=== PATIENT | female | born 1995 | race African-American/Black ===

== ENCOUNTER 2018-08-22 08:26 | Emergency (ER) | payer SELFPAY ==
[2018-08-22] MEDS ORDERED: FAMOTIDINE 20 MG/2 ML VIAL IV ONE (09:12)
[2018-08-22] MEDS ORDERED: NA CHLORIDE 0.9% 1,000 ML ONE (09:12)
[2018-08-22] MEDS ORDERED: KETOROLAC 30 MG/ML INJ ONE (09:12)
[2018-08-22] MEDS ORDERED: ONDANSETRON 4 MG/2 ML VIAL ONE (09:12)
[2018-08-22 09:19] LABS: Absolute Lymphocytes (CBC) 1.6 K/uL (0.7-4.9); Basophils % 0.6 % (0-1.3); Hematocrit 31.3 % (36.0-45.0); Monocytes % 6.2 % (3.3-12.3); RBC Red Blood Cell Count 5.14 M/uL (3.86-4.86)
[2018-08-22 09:32] LABS: ALT/SGPT 17 U/L (12-78); AST/SGOT 14 U/L (15-37); Albumin 3.9 g/dL (3.4-5.0); Alkaline Phosphatase 68 U/L (45-117); BUN Blood Urea Nitrogen 10 mg/dL (7-18); Bicarbonate 27 mmol/L (21-32); Bilirubin Direct < 0.1 mg/dL (0-0.2); Bilirubin Total 0.2 mg/dL (0.2-1.0); Glucose Level 85 mg/dL (74-106); Lipase 111 U/L (73-393); Potassium 3.8 mmol/L (3.5-5.1); Protein, Total 8.7 g/dL (6.4-8.2); Sodium Level 141 mmol/L (136-145)
[2018-08-22 10:03] LABS: Urine Blood NEGATIVE (NEG); Urine Glucose NEGATIVE (NEG); Urine Protein 1+ (NEG); Urine pH 8.5 (5.0-7.0)
[2018-08-22 10:06] LABS: Urine Amorphous Sediment 3+ /HPF (NONE SEEN); Urine Bacteria >50 /HPF (<20); Urine Culture Reflex Order REFLEXED; Urine Mucus 2+ /HPF (NONE SEEN); Urine RBC <5 /HPF (NONE SEEN)
--- NOTE | 2018-08-22 11:06 | RAD REPORT ---
EXAM DESCRIPTION: US - Abdomen Exam Limited - 08/22/2018 10:39 am CLINICAL HISTORY: Abdominal pain. COMPARISON: None. FINDINGS: The gallbladder wall is not thickened. A gallstone is not seen. Gallbladder fold is noted The biliary tree is normal caliber. IMPRESSION: Unremarkable gallbladder ultrasound.
--- NOTE | 2018-08-22 11:09 | ER ---
Nurse's Notes [facility] Name: Kimi Lara Age: 22 yrs Sex: Female : 1995 Arrival Date: 08/22/2018 Time: 08:27 Bed 19 Private MD: Diagnosis: Upper abdominal pain, unspecified Presentation: 08/22 08:51 Presenting complaint: Patient states: "I think I had bad alcohol last night. I have ss pain between my breasts and also up here (pointing to upper abdomen)." Also reports vomiting x 3. Transition of care: patient was not received from another setting of care. Onset of symptoms was August 22, 2018. Risk Assessment: Do you want to hurt yourself or someone else? Patient reports no desire to harm self or others. Initial Sepsis Screen: Does the patient meet any 2 criteria? No. Patient's initial sepsis screen is negative. Does the patient have a suspected source of infection? No. Patient's initial sepsis screen is negative. Care prior to arrival: None. 08:51 Method Of Arrival: Ambulatory ss 08:51 Acuity: MARSHA 3 ss Historical: - Allergies: 08:53 No Known Allergies; ss - Home Meds: 08:53 None [Active]; ss - PMHx: 08:53 None; ss - PSHx: 08:53 None; ss - Immunization history:: Adult Immunizations up to date. - Social history:: Smoking status: Patient/guardian denies using tobacco. - Ebola Screening: : Patient denies exposure to infectious person Patient denies travel to an Ebola-affected area in the 21 days before illness onset. Screenin:54 Abuse screen: Denies threats or abuse. Denies injuries from another. Nutritional ss screening: No deficits noted. Tuberculosis screening: Never had TB. Fall Risk None identified. Assessment: 08:54 General: Appears in no apparent distress. comfortable, Behavior is calm, cooperative, ss Denies fever, fatigue, chills. Pain: Complains of pain in chest, upper abd Pain currently is 7 out of 10 on a pain scale. Quality of pain is described as burning, sharp, Pain began "this morning" Is continuous. Neuro: Level of Consciousness is awake, alert, obeys commands, Oriented to person, place, time, situation. Cardiovascular: Capillary refill < 3 seconds is brisk in bilateral fingers. Respiratory: Airway is patent Respiratory effort is even, unlabored, Respiratory pattern is regular, symmetrical. GI: Abdomen is non-distended, obese, Bowel sounds present X 4 quads. Abd is soft X 4 quads Abdomen is tender to palpation in right upper quadrant Reports upper abdominal pain, epigastric pain, nausea, vomiting. : No signs and/or symptoms were reported regarding the genitourinary system. EENT: Nares are clear Oral mucosa is moist. Throat is clear. Derm: Skin is intact, is healthy with good turgor, Skin is dry, Skin is pink, warm \\T\\ dry. normal. Musculoskeletal: Circulation, motion, and sensation intact. Range of motion: intact in all extremities, Swelling absent. 09:45 Reassessment: Patient appears in no apparent distress at this time. Patient and/or em family updated on plan of care and expected duration. Pain level reassessed. Patient is alert, oriented x 3, equal unlabored respirations, skin warm/dry/pink. rates pain 4/10 Patient states feeling better. 11:00 Reassessment: Patient appears in no apparent distress at this time. Patient and/or em family updated on plan of care and expected duration. Pain level reassessed. Patient is alert, oriented x 3, equal unlabored respirations, skin warm/dry/pink. Patient states feeling better. Patient states symptoms have improved. Vital Signs: 08:53 BP 121 / 73; Pulse 65; Resp 15; Temp 97.5(TE); Pulse Ox 98% on R/A; Weight 86.18 kg; Height 5 ft. 0 in. (152.40 cm); Pain 7/10; 09:45 BP 129 / 63; Pulse 85; Resp 16 S; Pulse Ox 99% ; Pain 4/10; em 11:00 BP 117 / 68; Pulse 61; Resp 16; Pulse Ox 100% on R/A; Pain 2/10; em 08:53 Body Mass Index 37.11 (86.18 kg, 152.40 cm) ED Course: 08:27 Patient arrived in ED. as 08:33 [facility] kb 08:33 Juanjo Maloney MD is Attending Physician. kb 08:53 Triage completed. ss 08:53 Vinny Tobar LVN is Primary Nurse. em 08:53 Arm band placed on right wrist. ss 08:54 Patient has correct armband on for positive identification. Bed in low position. Call light in reach. 09:05 Initial lab(s) drawn, by me, sent to lab. Urine collected: clean catch specimen, clear. ms Inserted saline lock: 22 gauge in right antecubital area, using aseptic technique. Blood collected. 10:40 Ultrasound completed. Patient tolerated well. sg3 10:42 US Abdomen Limited In Process Unspecified. EDMS 11:22 No provider procedures requiring assistance completed. IV discontinued, intact, em bleeding controlled, No redness/swelling at site. Pressure dressing applied. Administered Medications: 09:07 Drug: NS 0.9% 1000 ml Route: IV; Rate: 1000 ml; Site: right antecubital; ss 10:48 Follow up: IV Status: Completed infusion; IV Intake: 1000ml em 09:07 Drug: Zofran 4 mg Route: IVP; Site: right antecubital; ss 09:45 Follow up: Response: No adverse reaction; Nausea is decreased em 09:09 Drug: Pepcid 20 mg Route: IVP; Site: right antecubital; ss 09:45 Follow up: Response: No adverse reaction; Pain is decreased em 09:12 Drug: TORadol - Ketorolac 15 mg Route: IVP; Site: right antecubital; ss 09:45 Follow up: Response: No adverse reaction; Pain is decreased em Intake: 10:48 IV: 1000ml; Total: 1000ml. em Outcome: 11:08 Discharge ordered by . kb 11:22 Discharged to home ambulatory. em 11:22 Condition: good 11:22 Discharge instructions given to patient, family, Instructed on discharge instructions, follow up and referral plans. medication usage, Demonstrated understanding of instructions, follow-up care, medications, Prescriptions given X 2. 11:23 Patient left the ED. em Signatures: Dispatcher [employer] Angelia Quiroga, BONING ROOM WORKER-C BONING ROOM WORKER-Vinny Luna, JAMB CUTTER JAMB CUTTER Ludivina Carrillo Maria ms Smirch, Shelby, JAYLIN RN Bessy Sahu sg3
--- NOTE | 2018-08-22 11:09 | EDPHYS ---
Physician Documentation [facility] Name: Kimi Lara Age: 22 yrs Sex: Female : 1995 Arrival Date: 08/22/2018 Time: 08:27 Bed 19 Private MD: ED Physician Juanjo Maloney HPI: 08/22 09:28 This 22 yrs old Black Female presents to ER via Ambulatory with complaints of kb Epigastric Pain. 09:28 The patient presents with abdominal pain in the epigastric area, in the upper abdomen. kb Onset: The symptoms/episode began/occurred this morning. The symptoms do not radiate. Associated signs and symptoms: Pertinent positives: nausea and vomiting, chest pain, Pertinent negatives: anorexia, blood in stools, constipation, diarrhea, dysuria, fever, headache, hematuria, palpitations, shortness of breath, vaginal discharge, vomiting blood. The symptoms are described as constant. Modifying factors: The symptoms are alleviated by nothing, the symptoms are aggravated by nothing. Severity of pain: At its worst the pain was moderate in the emergency department the pain is unchanged. The patient has experienced similar episodes in the past. The patient has not recently seen a physician. Pt reports she woke up at 0630 with upper abd pain and pain to center of chest. STates she vomited twice. "I think the alcohol I drank last night was bad because I've never had this kind of reaction." . Historical: - Allergies: 08:53 No Known Allergies; ss - Home Meds: 08:53 None [Active]; ss - PMHx: 08:53 None; ss - PSHx: 08:53 None; ss - Immunization history:: Adult Immunizations up to date. - Social history:: Smoking status: Patient/guardian denies using tobacco. - Ebola Screening: : Patient denies exposure to infectious person Patient denies travel to an Ebola-affected area in the 21 days before illness onset. ROS: 09:12 Constitutional: Negative for fever, chills, and weight loss, Neck: Negative for injury, kb pain, and swelling, Respiratory: Negative for shortness of breath, cough, wheezing, and pleuritic chest pain, Back: Negative for injury and pain, : Negative for injury, bleeding, discharge, and swelling, MS/Extremity: Negative for injury and deformity, Skin: Negative for injury, rash, and discoloration, Neuro: Negative for headache, weakness, numbness, tingling, and seizure. 09:12 Cardiovascular: Positive for chest pain, Negative for edema, orthopnea, palpitations, paroxysmal nocturnal dyspnea. 09:12 Abdomen/GI: Positive for abdominal pain, nausea and vomiting, Negative for diarrhea, constipation, abdominal cramps, abdominal distension, anorexia. Exam: 09:27 Constitutional: This is a well developed, well nourished patient who is awake, alert, kb and in no acute distress. Head/Face: Normocephalic, atraumatic. ENT: Nares patent. No nasal discharge, no septal abnormalities noted. Tympanic membranes are normal and external auditory canals are clear. Oropharynx with no redness, swelling, or masses, exudates, or evidence of obstruction, uvula midline. Mucous membranes moist. Neck: Trachea midline, no thyromegaly or masses palpated, and no cervical lymphadenopathy. Supple, full range of motion without nuchal rigidity, or vertebral point tenderness. No Meningismus. Chest/axilla: Normal chest wall appearance and motion. Nontender with no deformity. No lesions are appreciated. Cardiovascular: Regular rate and rhythm with a normal S1 and S2. No gallops, murmurs, or rubs. Normal PMI, no JVD. No pulse deficits. Respiratory: Lungs have equal breath sounds bilaterally, clear to auscultation and percussion. No rales, rhonchi or wheezes noted. No increased work of breathing, no retractions or nasal flaring. Back: No spinal tenderness. No costovertebral tenderness. Full range of motion. Skin: Warm, dry with normal turgor. Normal color with no rashes, no lesions, and no evidence of cellulitis. MS/ Extremity: Pulses equal, no cyanosis. Neurovascular intact. Full, normal range of motion. Neuro: Awake and alert, GCS 15, oriented to person, place, time, and situation. Cranial nerves II-XII grossly intact. Motor strength 5/5 in all extremities. Sensory grossly intact. Cerebellar exam normal. Normal gait. 09:27 Abdomen/GI: Inspection: obese Bowel sounds: normal, in all quadrants, Palpation: moderate abdominal tenderness, in the epigastric area and right upper quadrant. 11:07 ECG was reviewed by the Attending Physician. kb Vital Signs: 08:53 BP 121 / 73; Pulse 65; Resp 15; Temp 97.5(TE); Pulse Ox 98% on R/A; Weight 86.18 kg; ss Height 5 ft. 0 in. (152.40 cm); Pain 7/10; 09:45 BP 129 / 63; Pulse 85; Resp 16 S; Pulse Ox 99% ; Pain 4/10; em 11:00 BP 117 / 68; Pulse 61; Resp 16; Pulse Ox 100% on R/A; Pain 2/10; em 08:53 Body Mass Index 37.11 (86.18 kg, 152.40 cm) ss MDM: 08:46 Patient medically screened. kb 09:13 Data reviewed: vital signs, nurses notes. Data interpreted: Pulse oximetry: on room air kb is 98 %. Interpretation: normal. 11:08 Counseling: I had a detailed discussion with the patient and/or guardian regarding: the kb historical points, exam findings, and any diagnostic results supporting the discharge/admit diagnosis, lab results, radiology results, the need for outpatient follow up, a family practitioner, to return to the emergency department if symptoms worsen or persist or if there are any questions or concerns that arise at home. 11:09 ED course: No s/s of UTI. 08/22 08:53 Order name: Basic Metabolic Panel 08/22 08:53 Order name: CBC with Diff 08/22 08:53 Order name: Hepatic Function; Complete Time: 09:36 08/22 08:53 Order name: Lipase; Complete Time: 09:36 08/22 08:53 Order name: Basic Metabolic Panel; Complete Time: 09:36 [facility] 08/22 09:10 Order name: Urine Microscopic Only; Complete Time: 10:13 08/22 08:53 Order name: US Abdomen Limited; Complete Time: 11:07 kb 08/22 09:12 Order name: Urine Dipstick--Ancillary (enter results); Complete Time: 10:13 08/22 09:12 Order name: Urine --Ancillary (enter results); Complete Time: 10:13 08/22 09:44 Order name: CBC Smear Scan [facility] 08/22 10:08 Order name: Urine Culture [facility] 08/22 08:53 Order name: IV Saline Lock; Complete Time: 09:13 08/22 08:53 Order name: Labs collected and sent; Complete Time: 09:13 kb 08/22 10:46 Order name: EKG; Complete Time: 10:47 kb 08/22 10:46 Order name: EKG - Nurse/Tech; Complete Time: 11:10 kb EC:07 Rate is 87 beats/min. Rhythm is regular, Normal Sinus Rhythm. QRS Hagan is Normal. MD kb interval is normal at 138 msec. QRS interval is normal at 78 msec. QT interval is normal at 384 msec. Clinical impression: Normal ECG. Interpreted by me. Reviewed by me. Administered Medications: 09:07 Drug: NS 0.9% 1000 ml Route: IV; Rate: 1000 ml; Site: right antecubital; ss 10:48 Follow up: IV Status: Completed infusion; IV Intake: 1000ml em 09:07 Drug: Zofran 4 mg Route: IVP; Site: right antecubital; ss 09:45 Follow up: Response: No adverse reaction; Nausea is decreased em 09:09 Drug: Pepcid 20 mg Route: IVP; Site: right antecubital; ss 09:45 Follow up: Response: No adverse reaction; Pain is decreased em 09:12 Drug: TORadol - Ketorolac 15 mg Route: IVP; Site: right antecubital; ss 09:45 Follow up: Response: No adverse reaction; Pain is decreased em Disposition: 16:51 Co-signature as Attending Physician, Juanjo Maloney MD. rn Disposition: 08/22/18 11:08 Discharged to Home. Impression: Upper abdominal pain, unspecified. - Condition is Stable. - Discharge Instructions: Gastroesophageal Reflux Disease, Adult, Abdominal Pain, Adult, [id number]. - Prescriptions for Bentyl 20 mg Oral Tablet - take 1 tablet by ORAL route every 6 hours As needed; 20 tablet. Zofran 4 mg Oral Tablet - take 1 tablet by ORAL route every 6 hours As needed; 20 tablet. - Medication Reconciliation Form, Thank You Letter, Antibiotic Education, Prescription Opioid Use form. - Follow up: Emergency Department; When: As needed; Reason: Worsening of condition. Follow up: Private Physician; When: 2 - 3 days; Reason: Recheck today's complaints, Continuance of care, Re-evaluation by your physician. Signatures: Dispatcher [employer] Angelia Quiroga FNP-C BLOCK CLEANER-Vinny Luna, RELISH MAKER RELISH MAKER em Juanjo Maloney MD MD rn Smita Aguero RN RN ss Corrections: (The following items were deleted from the chart) 11:23 11:08 08/22/2018 11:08 Discharged to Home. Impression: Upper abdominal pain, em unspecified. Condition is Stable. Forms are Medication Reconciliation Form, Thank You Letter, Antibiotic Education, Prescription Opioid Use. Follow up: Emergency Department; When: As needed; Reason: Worsening of condition. Follow up: Private Physician; When: 2 - 3 days; Reason: Recheck today's complaints, Continuance of care, Re-evaluation by your physician. kb
[2018-08-22 13:07] LABS: Platelet Estimate INCR; Urine White Blood Cell Casts OK
[2018-08-22 13:08] LABS: Anisocytosis 2+; Blood Morphology Comment NOTED (NOT SEEN); Hypochromasia 1+; Rouleau NOTED; Target Cells 1+
--- NOTE | 2018-08-23 10:02 | EKG ---
Test Date: 2018-08-22 Test Time: 11:00:26 [employer]ship: MEASUREMENT RESULTS: Intervals: Rate: 87 KS: 138 QRSD: 78 QT: 384 QTc: 462 Johnson: P: 56 KS: 138 QRS: 51 T: 48 INTERPRETIVE STATEMENTS: Normal sinus rhythm Normal ECG No previous ECG available for comparison Electronically Signed On 08-23-18 10:01:03 CDT by Ezra Hagen
== END 2018-08-22 11:23 | disposition home or self-care (01) ==
LOC: ER 08:26
DX: R10.13 Epigastric pain (principal); R11.2 Nausea with vomiting, unspecified
CPT/HCPCS: 36415; 76705; 80048; 80076; 81003; 81015; 81025; 83690; 85025; 87086; 87088; 93005; 96361; 96374; 96375; 99284; J2405; J7030

== ENCOUNTER 2018-10-29 22:34 | Emergency (ER) | payer SELFPAY ==
[2018-10-29 23:39] LABS: Basophils % 0.7 % (0-1.3); Hematocrit 23.1 % (36.0-45.0); MPV 9.2 fL (7.6-11.3); RBC Red Blood Cell Count 3.92 M/uL (3.86-4.86)
[2018-10-29 23:50] LABS: ALT/SGPT 14 U/L (12-78); AST/SGOT 9 U/L (15-37); Albumin 3.5 g/dL (3.4-5.0); Alkaline Phosphatase 67 U/L (45-117); BUN Blood Urea Nitrogen 11 mg/dL (7-18); Bicarbonate 28 mmol/L (21-32); Bilirubin Direct 0.1 mg/dL (0-0.2); Bilirubin Total 0.2 mg/dL (0.2-1.0); Glucose Level 89 mg/dL (74-106); Lipase 92 U/L (73-393); Potassium 3.3 mmol/L (3.5-5.1); Protein, Total 7.8 g/dL (6.4-8.2); Sodium Level 140 mmol/L (136-145)
[2018-10-30] MEDS ORDERED: NA CHLORIDE 0.9% 1,000 ML ONE (00:22)
[2018-10-30 01:04] LABS: Anisocytosis 1+; Blood Morphology Comment NOTED (NOT SEEN); Hypochromasia 3+; Platelet Estimate ADEQ; Polychromasia 2+; Target Cells 3+; Urine White Blood Cell Casts OK
--- NOTE | 2018-10-30 02:48 | ER ---
Nurse's Notes [facility] Name: Kimi Lara Age: 23 yrs Sex: Female : 1995 Arrival Date: 10/29/2018 Time: 22:37 Bed 18 Private MD: Diagnosis: Anemia, unspecified;Dyspnea Presentation: 10/29 22:40 Presenting complaint: Patient states: Sternal chest pain since a couple of days now and cc3 intermittent left sided abdominal pain for a week. Transition of care: patient was not received from another setting of care. Onset of symptoms was October 29, 2018. Risk Assessment: Do you want to hurt yourself or someone else? Patient reports no desire to harm self or others. Initial Sepsis Screen: Does the patient meet any 2 criteria? HR > 90 bpm. Does the patient have a suspected source of infection? No. Patient's initial sepsis screen is negative. Care prior to arrival: None. 22:40 Method Of Arrival: Ambulatory cc3 22:40 Acuity: MARSHA 3 cc3 Triage Assessment: 22:40 General: Appears in no apparent distress. uncomfortable, Behavior is calm, cooperative, cc3 appropriate for age. Pain: Complains of pain in sternal chest pain, left sided abdominal pain. EENT: No signs and/or symptoms were reported regarding the EENT system. Neuro: Level of Consciousness is awake, alert, obeys commands, Oriented to person, place, time, situation, Appropriate for age. Cardiovascular: Reports chest pain, since a couple of days Heart tones S1 S2 present Capillary refill < 3 seconds Patient's skin is warm and dry. Respiratory: Airway is patent Respiratory effort is even, unlabored, Respiratory pattern is regular, symmetrical. GI: Abdomen is round obese. : No signs and/or symptoms were reported regarding the genitourinary system. Derm: Skin is intact, is healthy with good turgor, Skin is normal, black. Musculoskeletal: Circulation, motion, and sensation intact. Range of motion: intact in all extremities. PRODUCT MANAGEMENT INTERN: 22:40 LMP 10/09/2018 cc3 Historical: - Allergies: 22:40 No Known Allergies; cc3 - PMHx: 22:40 None; cc3 - PSHx: 22:40 None; cc3 - Immunization history:: Adult Immunizations up to date. - Social history:: Smoking status: Patient/guardian denies using tobacco, never smoked. - Ebola Screening: : No symptoms or risks identified at this time. Screenin:40 Abuse screen: Denies threats or abuse. Denies injuries from another. Nutritional cc3 screening: No deficits noted. Tuberculosis screening: No symptoms or risk factors identified. Fall Risk Ambulatory Aid- None/Bed Rest/Nurse Assist (0 pts). Gait- Normal/Bed Rest/Wheelchair (0 pts) Mental Status- Oriented to own ability (0 pts). Assessment: 22:40 Pain: Complains of pain in sternal chest pain and left sided abdominal pain Pain does cc3 not radiate. Quality of pain is described as aching, Pain began a couple of days Is intermittent. 10/30 01:01 Reassessment: Patient appears in no apparent distress at this time. Patient and/or cc3 family updated on plan of care and expected duration. Pain level reassessed. Patient is alert, oriented x 3, equal unlabored respirations, skin warm/dry/pink. IRVIN Rae spoke with the patient regarding PRBC transfusion and patient refused. 01:30 Reassessment: Patient refused CT scan procedure as well and wants to go home. AMA form cc3 signed by the patient herself though risks and consequences explained. 01:40 Reassessment: Patient appears in no apparent distress at this time. Patient and/or cc3 family updated on plan of care and expected duration. Pain level reassessed. Patient is alert, oriented x 3, equal unlabored respirations, skin warm/dry/pink. IRVIN Rae discharged the patient AMA with prescription given. IV cannula removed and patient left ER vitally stable and ambulatory with her boyfriend. No valuables left in the patient's room. Patient denies pain at this time. Patient states feeling better. Patient states symptoms have improved. Vital Signs: 10/29 22:40 BP 132 / 61; Pulse 111; Resp 20 S; Temp 98.9(O); Pulse Ox 100% on R/A; Weight 86.18 kg cc3 (R); Height 5 ft. 0 in. (152.40 cm) (R); Pain 7/10; 23:47 BP 113 / 56; Pulse 87; Resp 17 S; Pulse Ox 99% on R/A; cc3 10/30 00:45 BP 120 / 66; Pulse 89; Resp 18 S; Pulse Ox 100% on R/A; cc3 01:30 BP 114 / 74; Pulse 90; Resp 17 S; Pulse Ox 100% on R/A; Pain 3/10; cc3 10/29 22:40 Body Mass Index 37.11 (86.18 kg, 152.40 cm) cc3 ED Course: 10/29 22:37 Patient arrived in ED. mr 22:40 [facility] kb 22:40 Timothy Naik MD is Attending Physician. kb 22:40 Arm band placed on right wrist. EKG completed in triage. Results shown to MD. cc3 22:40 Patient has correct armband on for positive identification. Placed in gown. Bed in low cc3 position. Call light in reach. Side rails up X 1. telemetry monitor on. Pulse ox on. NIBP on. 22:40 Patient maintains SpO2 saturation greater than 95% on room air. cc3 22:51 Deborah Phillips is Primary Nurse. cc3 22:56 Triage completed. cc3 23:20 Inserted saline lock: 22 gauge in right antecubital area, using aseptic technique. cc3 Blood collected. inserted by business office technician Dalila. 23:29 X-ray completed. Patient tolerated procedure well. [facility] 23:49 Chest Pa And Lat (2 Views) XRAY In Process Unspecified. EDMS 09 00:41 Radiology exam delayed due to test not completed at this time. eh 01:[address] via stretcher. 01:30 No provider procedures requiring assistance completed. IV discontinued, intact, cc3 bleeding controlled, No redness/swelling at site. Pressure dressing applied. Administered Medications: 00:15 Drug: NS 0.9% 1000 ml Route: IV; Rate: 1000 ml; Site: right antecubital; cc3 01:30 Follow up: Response: No adverse reaction; IV Status: Order to discontinue infusion; IV cc3 Intake: 600ml ; patient discharged AMA Intake: 01:30 IV: 600ml; Total: 600ml. cc3 Outcome: 01:40 AMA AMA form signed cc3 01:40 Condition: stable 01:40 Discharge instructions given to patient, Instructed on discharge instructions, follow up and referral plans. medication usage, Demonstrated understanding of instructions, follow-up care, medications, Prescriptions given X 1. 01:43 Patient left the ED. cc3 Signatures: Dispatcher [employer] EDMS Angelia Rae, PARISA SPENCEP-Alicia Rose Betsy, Sinan Perez, Romina 1 Deborah Phillips cc3 Corrections: (The following items were deleted from the chart) 01:49 01:30 BP 114 / 74; Pulse 90bpm; Resp 17bpm; Spontaneous; Pulse Ox 100% RA; cc3 cc3
--- NOTE | 2018-10-30 02:51 | EDPHYS ---
Physician Documentation [facility] Name: Kimi Lara Age: 23 yrs Sex: Female : 1995 Arrival Date: 10/29/2018 Time: 22:37 Bed 18 Private MD: ED Physician Timothy Naik HPI: 10/30 01:13 This 23 yrs old Black Female presents to ER via Ambulatory with complaints of Chest kb Pain, Abdominal Pain. 01:13 The patient has shortness of breath at rest. Onset: The symptoms/episode began/occurred kb 2 week(s) ago. Duration: The symptoms are continuous. The patient's shortness of breath is aggravated by exertion. Associated signs and symptoms: Pertinent positives: chest pain. Severity of symptoms: At their worst the symptoms were moderate in the emergency department the symptoms are unchanged. The patient has not experienced similar symptoms in the past. The patient has not recently seen a physician. 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 - Social history:: Smoking status: Patient/guardian denies using tobacco, never smoked. - Ebola Screening: : No symptoms or risks identified at this time. ROS: 10/30 01:13 Constitutional: Negative for fever, chills, and weight loss, ENT: Negative for injury, kb pain, and discharge, Neck: Negative for injury, pain, and swelling, Back: Negative for injury and pain, : Negative for injury, bleeding, discharge, and swelling, MS/Extremity: Negative for injury and deformity, Skin: Negative for injury, rash, and discoloration, Neuro: Negative for headache, weakness, numbness, tingling, and seizure. Cardiovascular: Positive for chest pain, Negative for edema, orthopnea, palpitations, paroxysmal nocturnal dyspnea. Respiratory: Positive for dyspnea on exertion, shortness of breath, Negative for cough, hemoptysis, orthopnea, pleurisy, sputum production, wheezing. Abdomen/GI: Positive for abdominal pain, Negative for nausea, vomiting, and diarrhea. Exam: 01:13 Constitutional: This is a well developed, well nourished patient who is awake, alert, kb and in no acute distress. Head/Face: Normocephalic, atraumatic. ENT: Nares patent. No nasal discharge, no septal abnormalities noted. Tympanic membranes are normal and external auditory canals are clear. Oropharynx with no redness, swelling, or masses, exudates, or evidence of obstruction, uvula midline. Mucous membranes moist. Neck: Trachea midline, no thyromegaly or masses palpated, and no cervical lymphadenopathy. Supple, full range of motion without nuchal rigidity, or vertebral point tenderness. No Meningismus. Chest/axilla: Normal chest wall appearance and motion. Nontender with no deformity. No lesions are appreciated. Cardiovascular: Regular rate and rhythm with a normal S1 and S2. No gallops, murmurs, or rubs. Normal PMI, no JVD. No pulse deficits. Respiratory: Lungs have equal breath sounds bilaterally, clear to auscultation and percussion. No rales, rhonchi or wheezes noted. No increased work of breathing, no retractions or nasal flaring. Abdomen/GI: Soft, non-tender, with normal bowel sounds. No distension or tympany. No guarding or rebound. No evidence of tenderness throughout. Skin: Warm, dry with normal turgor. Normal color with no rashes, no lesions, and no evidence of cellulitis. MS/ Extremity: Pulses equal, no cyanosis. Neurovascular intact. Full, normal range of motion. Neuro: Awake and alert, GCS 15, oriented to person, place, time, and situation. Cranial nerves II-XII grossly intact. Motor strength 5/5 in all extremities. Sensory grossly intact. Cerebellar exam normal. Normal gait. Vital Signs: 10/29 22:40 BP 132 / 61; Pulse 111; Resp 20 S; Temp 98.9(O); Pulse Ox 100% on R/A; Weight 86.18 kg cc3 (R); Height 5 ft. 0 in. (152.40 cm) (R); Pain 7/10; 23:47 BP 113 / 56; Pulse 87; Resp 17 S; Pulse Ox 99% on R/A; cc3 10/30 00:45 BP 120 / 66; Pulse 89; Resp 18 S; Pulse Ox 100% on R/A; cc3 01:30 BP 114 / 74; Pulse 90; Resp 17 S; Pulse Ox 100% on R/A; Pain 3/10; cc3 10/29 22:40 Body Mass Index 37.11 (86.18 kg, 152.40 cm) cc3 MDM: 10/29 22:40 Patient medically screened. 10/30 00:59 Data reviewed: vital signs, nurses notes. Data interpreted: Pulse oximetry: on room air kb is 99 %. Interpretation: normal. Counseling: I had a detailed discussion with the patient and/or guardian regarding: the historical points, exam findings, and any diagnostic results supporting the discharge/admit diagnosis, lab results, radiology results, the need for further work-up and treatment in the hospital. ED course: Pt reports she is not currently bleeding, but does have heavy periods.Discussed need for blood transfusion. Pt states she does not want to have that done. Refuses transfusion. Educated on need for iron supplements. Verbal understanding received. . 01:23 ED course: Pt refuses CT scan. Wants to go home. Educated on risks of leaving. Will kb return if needed. . 10/29 22:58 Order name: Basic Metabolic Panel; Complete Time: 23:54 kb 10/29 22:58 Order name: CBC with Diff; Complete Time: 01:09 kb 10/29 22:58 Order name: Hepatic Function; Complete Time: 23:54 kb 10/29 22:58 Order name: Lipase; Complete Time: 23:54 kb 10/29 22:58 Order name: D-Dimer; Complete Time: 00:06 kb 10/30 00:07 Order name: Type And Screen 10/29 22:58 Order name: IV Saline Lock; Complete Time: 23:47 kb 10/29 22:58 Order name: Chest Pa And Lat (2 Views) XRAY 10/29 22:58 Order name: EKG; Complete Time: 23:00 kb 10/30 00:12 Order name: CBC Smear Scan; Complete Time: 01:09 EDMS 10/30 01:21 Order name: Urine Dipstick--Ancillary (enter results) [facility] 10/30 01:21 Order name: Urine --Ancillary (enter results) [facility] 10/29 22:58 Order name: Labs collected and sent; Complete Time: 23:47 kb 10/29 22:58 Order name: EKG - Nurse/Tech; Complete Time: 23:47 kb Administered Medications: 00:15 Drug: NS 0.9% 1000 ml Route: IV; Rate: 1000 ml; Site: right antecubital; cc3 01:30 Follow up: Response: No adverse reaction; IV Status: Order to discontinue infusion; IV cc3 Intake: 600ml ; patient discharged AMA Disposition: 01:43 Co-signature as Attending Physician, Timothy Naik MD I agree with the assessment and kdr plan of care. Disposition: 10/30/18 01:25 Patient has left against medical advice. Impression: Anemia, unspecified, Dyspnea. - Patients states they are going to Home. - Condition is Stable. - Discharge Instructions: Menorrhagia, [id number], Iron Deficiency Anemia, Adult, [id number]. - Prescriptions for Ferrous Sulfate 325 mg (65 mg Iron) Oral Tablet - take 1 tablet by ORAL route every 8 hours; 90 tablet. Work release form, Family Work Release form. Follow up: Emergency Department; When: As needed; Reason: Worsening of condition. Follow up: Private Physician; When: 2 - 3 days; Reason: Recheck today's complaints, Continuance of care, Re-evaluation by your physician. - Problem is new. - Symptoms have improved. Signatures: Dispatcher [employer] EDMS Angelia Rae, COMMUNITY RECREATION PROGRAMMER-C COMMUNITY RECREATION PROGRAMMER-CkTimothy Pak MD MD [facility] Deborah Phillips cc3 Corrections: (The following items were deleted from the chart) 01:43 01:25 10/30/2018 01:25 Patients has left against medical advice. Impression: Anemia, cc3 unspecified; Dyspnea. Patient states they are going to Home. Condition is Stable. Follow up: Emergency Department; When: As needed; Reason: Worsening of condition. Follow up: Private Physician; When: 2 - 3 days; Reason: Recheck today's complaints, Continuance of care, Re-evaluation by your physician. Problem is new. Symptoms have improved. kb
[2018-10-30 03:36] LABS: Urine Blood NEGATIVE (NEG); Urine Glucose NEGATIVE (NEG); Urine Protein NEGATIVE (NEG)
--- NOTE | 2018-10-30 08:23 | EKG ---
Test Date: 2018-10-29 Test Time: 23:03:00 Tractor Trailer Technician: TYRONE MEASUREMENT RESULTS: Intervals: Rate: 99 MS: 128 QRSD: 74 QT: 362 QTc: 464 Vista: P: 66 MS: 128 QRS: 56 T: 42 INTERPRETIVE STATEMENTS: Normal sinus rhythm Normal ECG Compared to ECG 08/22/2018 11:00:26 No significant changes Electronically Signed On 10-30-18 08:22:46 CDT by Arsh Ramírez
--- NOTE | 2018-10-30 09:27 | RAD REPORT ---
EXAM DESCRIPTION: RAD - Chest Pa And Lat (2 Views) - 10/29/2018 11:48 pm CLINICAL HISTORY: Chest pain;Dyspnea COMPARISON: None. TECHNIQUE: PA and lateral views of the chest were obtained. FINDINGS: The lungs are clear. Heart size is normal and central vasculature is within normal limit s. No pleural effusion or pneumothorax seen. No acute bony finding noted. No aortic abnormality. IMPRESSION: No acute cardiopulmonary process.
== END 2018-10-30 01:43 | disposition left against medical advice (07) ==
LOC: ER 22:34
DX: R06.00 Dyspnea, unspecified (principal); D64.9 Anemia, unspecified
CPT/HCPCS: 36415; 71046; 80048; 80076; 81003; 81025; 83690; 85025; 85379; 86850; 86900; 86901; 93005; 96360; 99285; J7030

== ENCOUNTER 2018-12-15 01:47 | Emergency (ER) | payer OTHER, SELFPAY ==
--- NOTE | 2018-12-15 03:03 | ER ---
Nurse's Notes [facility] Name: Kimi Lara Age: 23 yrs Sex: Female : 1995 Arrival Date: 12/15/2018 Time: 01:51 Bed 19 Private MD: Diagnosis: Other chest pain; related conditions, unspecified, first trimester;Urinary tract infection, site not specified Presentation: 12/15 01:59 Presenting complaint: Patient states: chest pain, eye pain after using bleach today at [facility] work. Transition of care: patient was not received from another setting of care. Onset of symptoms was December 15, 2018. Risk Assessment: Do you want to hurt yourself or someone else? Patient reports no desire to harm self or others. Initial Sepsis Screen: Does the patient meet any 2 criteria? No. Patient's initial sepsis screen is negative. Does the patient have a suspected source of infection? No. Patient's initial sepsis screen is negative. Care prior to arrival: None. 01:59 Method Of Arrival: Ambulatory ak 01:59 Acuity: MARSHA 4 ak1 Triage Assessment: 01:58 General: Appears in no apparent distress. Behavior is calm, cooperative. 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 - Social history:: Smoking status: Patient/guardian denies using tobacco. - Ebola Screening: : No symptoms or risks identified at this time. - Family history:: not pertinent. Screenin:50 Abuse screen: Denies threats or abuse. Denies injuries from another. Nutritional lp1 screening: No deficits noted. Tuberculosis screening: No symptoms or risk factors identified. Fall Risk None identified. Assessment: 02:50 General: Appears in no apparent distress. Behavior is calm, cooperative, appropriate lp1 for age. Pain: Complains of pain in chest Pain does not radiate. Quality of pain is described as sharp, Pain began 1 day ago. Aggravated by respirations. Neuro: No deficits noted. Cardiovascular: Patient's skin is warm and dry. Respiratory: Respiratory effort is even, unlabored. GI: No deficits noted. : No deficits noted. EENT: No deficits noted. Derm: Skin is intact, Skin is dry, Skin is normal. Musculoskeletal: No deficits noted. Vital Signs: 01:58 BP 121 / 97; Pulse 107; Resp 16; Temp 97.5; Pulse Ox 96% on R/A; Weight 83.91 kg (R); ak1 Height 5 ft. 0 in. (152.40 cm) (R); Pain 7/10; 01:58 Body Mass Index 36.13 (83.91 kg, 152.40 cm) ak1 ED Course: 01:51 Patient arrived in ED. es 01:58 Arm band placed on Patient placed in waiting room, Patient notified of wait time. ak1 02:00 Triage completed. ak1 02:18 Brad Morales MD is Attending Physician. anamaria 02:40 Allison Farias, RN is Primary Nurse. lp1 02:51 Patient has correct armband on for positive identification. lp1 02:51 No provider procedures requiring assistance completed. lp1 03:02 Travon Dallas MD is Referral Physician. anamaria 03:15 Patient did not have IV access during this emergency room visit. lp1 Administered Medications: No medications were administered Outcome: 03:02 Discharge ordered by . anamaria 03:15 Discharged to home ambulatory. lp1 03:15 Condition: good 03:15 Discharge instructions given to patient, Instructed on discharge instructions, follow up and referral plans. medication usage, Demonstrated understanding of instructions, follow-up care, medications, Prescriptions given X 2. 03:16 Patient left the ED. lp1 Signatures: rBad Morales MD MD cha Salyer, Edna es Pena, Laura, RN RN lp1 Leatha José, RN RN ak1
--- NOTE | 2018-12-15 03:04 | EDPHYS ---
Physician Documentation [facility] Name: Kimi Lara Age: 23 yrs Sex: Female : 1995 Arrival Date: 12/15/2018 Time: 01:51 Bed 19 Private MD: ED Physician Brad Morales HPI: 12/15 02:59 This 23 yrs old Black Female presents to ER via Ambulatory with complaints of Chest anamaria Pain, 5wks preg. 02:59 The patient or guardian reports chest pain that is located primarily in the anterior anamaria chest wall. The pain does not radiate. Associated signs and symptoms: The patient has no apparent associated signs or symptoms. The chest pain is described as aching. Modifying factors: The symptoms are alleviated by nothing. the symptoms are aggravated by nothing. Severity of pain: At its worst the pain was mild in the emergency department the pain has improved mildly. 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 - Social history:: Smoking status: Patient/guardian denies using tobacco. - Ebola Screening: : No symptoms or risks identified at this time. - Family history:: not pertinent. ROS: 02:59 Constitutional: Negative for fever, chills, and weight loss, Eyes: Negative for injury, anamaria pain, redness, and discharge, ENT: Negative for injury, pain, and discharge, Neck: Negative for injury, pain, and swelling, Respiratory: Negative for shortness of breath, cough, wheezing, and pleuritic chest pain, Abdomen/GI: Negative for abdominal pain, nausea, vomiting, diarrhea, and constipation, Back: Negative for injury and pain, : Negative for injury, bleeding, discharge, and swelling, MS/Extremity: Negative for injury and deformity, Skin: Negative for injury, rash, and discoloration, Neuro: Negative for headache, weakness, numbness, tingling, and seizure, Psych: Negative for depression, anxiety, suicide ideation, homicidal ideation, and hallucinations, Allergy/Immunology: Negative for hives, rash, and allergies, Endocrine: Negative for neck swelling, polydipsia, polyuria, polyphagia, and marked weight changes, Hematologic/Lymphatic: Negative for swollen nodes, abnormal bleeding, and unusual bruising. 02:59 Cardiovascular: Positive for chest pain, of the chest. Exam: 02:59 Constitutional: This is a well developed, well nourished patient who is awake, alert, anamaria and in no acute distress. Head/Face: Normocephalic, atraumatic. Eyes: Pupils equal round and reactive to light, extra-ocular motions intact. Lids and lashes normal. Conjunctiva and sclera are non-icteric and not injected. Cornea within normal limits. Periorbital areas with no swelling, redness, or edema. ENT: Nares patent. No nasal discharge, no septal abnormalities noted. Tympanic membranes are normal and external auditory canals are clear. Oropharynx with no redness, swelling, or masses, exudates, or evidence of obstruction, uvula midline. Mucous membranes moist. Neck: Trachea midline, no thyromegaly or masses palpated, and no cervical lymphadenopathy. Supple, full range of motion without nuchal rigidity, or vertebral point tenderness. No Meningismus. Chest/axilla: Normal chest wall appearance and motion. Nontender with no deformity. No lesions are appreciated. Cardiovascular: Regular rate and rhythm with a normal S1 and S2. No gallops, murmurs, or rubs. Normal PMI, no JVD. No pulse deficits. Respiratory: Lungs have equal breath sounds bilaterally, clear to auscultation and percussion. No rales, rhonchi or wheezes noted. No increased work of breathing, no retractions or nasal flaring. Abdomen/GI: Soft, non-tender, with normal bowel sounds. No distension or tympany. No guarding or rebound. No evidence of tenderness throughout. Back: No spinal tenderness. No costovertebral tenderness. Full range of motion. Skin: Warm, dry with normal turgor. Normal color with no rashes, no lesions, and no evidence of cellulitis. MS/ Extremity: Pulses equal, no cyanosis. Neurovascular intact. Full, normal range of motion. Neuro: Awake and alert, GCS 15, oriented to person, place, time, and situation. Cranial nerves II-XII grossly intact. Motor strength 5/5 in all extremities. Sensory grossly intact. Cerebellar exam normal. Normal gait. Psych: Awake, alert, with orientation to person, place and time. Behavior, mood, and affect are within normal limits. 02:59 Musculoskeletal/extremity: DVT Exam: No signs of deep vein thrombosis. no pain, no swelling, no tenderness, negative Homans' sign noted on exam, no appreciated bluish discoloration, no erythema, no increased warmth. Vital Signs: 01:58 BP 121 / 97; Pulse 107; Resp 16; Temp 97.5; Pulse Ox 96% on R/A; Weight 83.91 kg (R); ak1 Height 5 ft. 0 in. (152.40 cm) (R); Pain 7/10; 01:58 Body Mass Index 36.13 (83.91 kg, 152.40 cm) ak1 MDM: 02:18 Patient medically screened. [facility] 03:01 Data reviewed: vital signs, nurses notes, lab test result(s), urinalysis. [facility] 12/15 02:29 Order name: Urine Dipstick--Ancillary (enter results) [facility] 12/15 02:29 Order name: Urine --Ancillary (enter results) [facility] 12/15 03:05 Order name: Urine Culture [facility] Administered Medications: No medications were administered Disposition: 12/15/18 03:02 Discharged to Home. Impression: Other chest pain, related conditions, unspecified, first trimester, Urinary tract infection, site not specified. - Condition is Stable. - Discharge Instructions: Nonspecific Chest Pain, Dysuria, Urinary Tract Infection, Adult, First Trimester of , [id number], Nonspecific Chest Pain, [id number], First Trimester of , Pelvic Rest. - Prescriptions for Keflex 500 mg Oral Capsule - take 1 capsule by ORAL route every 6 hours for 7 days; 28 capsule. Vitamin 27- 0.8 mg Oral Tablet - take 1 tablet by ORAL route once daily; 30 tablet. - Medication Reconciliation Form, Thank You Letter, Antibiotic Education, Prescription Opioid Use, Work release form form. - Follow up: Private Physician; When: 2 - 3 days; Reason: Recheck today's complaints, Continuance of care, Re-evaluation by your physician. Follow up: Travon Dallas MD; When: 2 - 3 days; Reason: Recheck today's complaints, Continuance of care, Re-evaluation by your physician. - Problem is new. - Symptoms have improved. Signatures: Dispatcher [employer] EDBrad Pretty MD MD cha Pena, Laura RN RN lp1 Leatha José RN RN ak1 Corrections: (The following items were deleted from the chart) 03:03 03:02 12/15/2018 03:02 Discharged to Home. Impression: Other chest pain; anamaria related conditions, unspecified, first trimester. Condition is Stable. Forms are Medication Reconciliation Form, Thank You Letter, Antibiotic Education, Prescription Opioid Use. Follow up: Private Physician; When: 2 - 3 days; Reason: Recheck today's complaints, Continuance of care, Re-evaluation by your physician. Follow up: Travon Dallas; When: 2 - 3 days; Reason: Recheck today's complaints, Continuance of care, Re-evaluation by your physician. Problem is new. Symptoms have improved. [facility] 03:16 03:03 12/15/2018 03:02 Discharged to Home. Impression: Other chest pain; lp1 related conditions, unspecified, first trimester; Urinary tract infection, site not specified. Condition is Stable. Discharge Instructions: Nonspecific Chest Pain, First Trimester of , [id number], Nonspecific Chest Pain, [id number], First Trimester of , Pelvic Rest. Forms are Medication Reconciliation Form, Thank You Letter, Antibiotic Education, Prescription Opioid Use. Follow up: Private Physician; When: 2 - 3 days; Reason: Recheck today's complaints, Continuance of care, Re-evaluation by your physician. Follow up: Travon Dallas; When: 2 - 3 days; Reason: Recheck today's complaints, Continuance of care, Re-evaluation by your physician. Problem is new. Symptoms have improved. anamaria
[2018-12-15 03:27] VITALS: BP 121/97; TEMP 97.5; O2SAT 96
[2018-12-15 03:44] LABS: Urine Blood NEGATIVE (NEG); Urine Glucose NEGATIVE (NEG); Urine Protein NEGATIVE (NEG); Urine pH 7.5 (5.0-7.0)
== END 2018-12-15 03:16 | disposition home or self-care (01) ==
LOC: ER 01:47
DX: O23.41 Unspecified infection of urinary tract in pregnancy, first trimester (principal); O99.011 Anemia complicating pregnancy, first trimester; Z3A.01 Less than 8 weeks gestation of pregnancy
CPT/HCPCS: 81003; 81025; 87086; 87088; 99282